=== PATIENT | female | born 1980 | race African-American/Black ===

== ENCOUNTER 2018-10-28 23:01 | Emergency (ER) | payer OTHER ==
[~2018-10-28] VITALS: Ht 154.9 cm; Wt 121.1 kg
--- NOTE | 2018-10-28 23:20 | PHYS DOC ---
Adult General Chief Complaint Chief Complaint: ANXIETY/PANIC ATTACK HPI HPI Patient is a 38-year-old female who presents with complaint of severe anxiety. Patient states that she was recently taken off of her Wellbutrin and transitioned to Zoloft. She states that over the last 2 days she has been having a severe panic attack. She states that she tried to call her doctor earlier this afternoon but never heard back from them. She was trying to wait until tomorrow morning but states that her symptoms got so severe that she needed to come to the emergency room. She denies any chest pain but is worried that maybe her blood pressure is going up because of how anxious she is. She denies any homicidal or suicidal ideations. Review of Systems Review of Systems Constitutional: Denies fever or chills [] Respiratory: Denies cough or shortness of breath [] Cardiovascular: No additional information not addressed in HPI [] Integument: Denies rash or skin lesions [] Neurologic: Denies headache, focal weakness or sensory changes [] Psychiatric: Positive anxiety[] Physical Exam Physical Exam Constitutional: Well developed, well nourished, no acute distress, non-toxic appearance. [] Cardiovascular:Heart rate regular rhythm, no murmur [] Lungs & Thorax: Bilateral breath sounds clear to auscultation [] Extremities: No tenderness, no cyanosis, no clubbing, ROM intact, no edema. [] Neurologic: Alert and oriented X 3, no focal deficits noted. [] Psychologic: Moderately anxious on exam. [] EKG EKG [] Radiology/Procedures Radiology/Procedures [] Course & Med Decision Making Course & Med Decision Making Pertinent Labs and Imaging studies reviewed. (See chart for details) [] Dragon Disclaimer Dragon Disclaimer This electronic medical record was generated, in whole or in part, using a voice recognition dictation system. Departure Departure: Impression: Primary Impression: Panic attack Disposition: 01 HOME, SELF-CARE Condition: STABLE Referrals: PCP,UNKNOWN (PCP) Patient Instructions: Anxiety and Panic Attacks ARNOLD RIZVI Jr. DO Oct 28, 2018 23:20
[2018-10-28] MEDS ORDERED: ALPRAZolam 0.25 MG TABLET PO ONE (23:30)
[2018-10-29 00:10] VITALS: BP 137/88
[2018-10-29] MEDS ORDERED: CLOR7.5T43 PO (18:20)
== END 2018-10-29 00:10 | disposition home or self-care (01) ==
LOC: ER 23:01
DX: F41.0 Panic disorder [episodic paroxysmal anxiety] (principal)
CPT/HCPCS: 99284

== ENCOUNTER 2018-10-29 17:42 | Emergency (ER) | payer OTHER ==
[~2018-10-29] VITALS: Ht 154.9 cm; Wt 121.1 kg
[2018-10-29 17:52] VITALS: BP 148/81
[2018-10-29] MEDS ORDERED: CLOR7.5T43 PO (18:20)
--- NOTE | 2018-10-29 18:20 | PHYS DOC ---
Past History Past Medical History: Anxiety, Asthma, Depression, Hypertension, Other Past Surgical History: Cholecystectomy, Tonsillectomy, Tubal ligation Alcohol Use: None Drug Use: None Adult General Chief Complaint Chief Complaint: MEDICATION [facility] HPI Patient is a 38-year-old female who presents with request for few day supply of anxiolytic. Patient was seen here last night and had been given a dose of alprazolam due to severe anxiety and inability to sleep. Patient was supposed to follow up with her primary care doctor today but states that she overslept and was not able to get in today. She denies any chest pain or shortness of breath. She denies any suicidal or homicidal ideations. Review of Systems Review of Systems Constitutional: Denies fever or chills [] Respiratory: Denies cough or shortness of breath [] Cardiovascular: No additional information not addressed in HPI [] Neurologic: Denies headache, focal weakness or sensory changes [] Allergies Allergies Allergies Coded Allergies Type Severity Reaction Last Updated Verified No Known Drug Allergies 10/29/18 No Physical Exam Physical Exam Constitutional: Well developed, well nourished, no acute distress, non-toxic appearance. [] Cardiovascular:Heart rate regular rhythm, no murmur [] Lungs & Thorax: Bilateral breath sounds clear to auscultation [] Neurologic: Alert and oriented X 3, no focal deficits noted. [] Current Patient Data Vital Signs Vital Signs Date Time Temp Pulse Resp B/P (MAP) Pulse Ox O2 Delivery O2 Flow Rate FiO2 10/29/18 17:52 99.1 95 18 97 Room Air EKG EKG [] Radiology/Procedures Radiology/Procedures [] Course & Med Decision Making Course & Med Decision Making Pertinent Labs and Imaging studies reviewed. (See chart for details) [] Dragon Disclaimer Dragon Disclaimer This electronic medical record was generated, in whole or in part, using a voice recognition dictation system. Departure Departure: Impression: Primary Impression: Panic disorder Disposition: 01 HOME, SELF-CARE Condition: STABLE Referrals: LUCA SOLIMAN MD (PCP) Patient Instructions: Anxiety and Panic Attacks Scripts Clorazepate Dipotassium (TRANXENE T-TAB) 7.5 Mg Tablet 7.5 MG PO QHS PRN for ANXIETY, #5 TAB Prov: ARNOLD RIZVI Jr. DO 10/29/18 ARNOLD RIZVI Jr. DO Oct 29, 2018 18:20
== END 2018-10-29 18:26 | disposition home or self-care (01) ==
LOC: ER 17:42
DX: F41.0 Panic disorder [episodic paroxysmal anxiety] (principal); J45.909 Unspecified asthma, uncomplicated; F32.9 Major depressive disorder, single episode, unspecified; I10 Essential (primary) hypertension
CPT/HCPCS: 99283

== ENCOUNTER 2018-11-16 01:51 | Emergency (ER) | payer OTHER ==
[~2018-11-16] VITALS: Ht 154.9 cm; Wt 121.1 kg
[~2018-11-16 01:51] MED LIST: CLOR7.5T43 PO
[2018-11-16 01:55] VITALS: BP 146/81
--- NOTE | 2018-11-16 02:14 | ED.ADGEN ---
Past History Past Medical History: Anxiety, Asthma, Depression, Hypertension, Other Past Surgical History: Cholecystectomy, Tonsillectomy, Tubal ligation Smoking: Cigarettes Alcohol Use: None Drug Use: None Adult General Chief Complaint Chief Complaint ".. My legs hurt so bad tonight.. I got arthritis.." [facility] HPI Patient is a 38 year old female who presents with above hx and complaints exacerbation of her chronic arthritis complaints particularly in bilateral knees. Patient has history of chronic pain, anxiety, depression, and arthritis. Patient denies any injury to her knees. Distal neurovascular intact. Patient is able to do straight leg lift. Knees do have some bilateral swelling. But no cording appreciated. No obvious laxity of ligaments. Distal neurovascular intact. Patient denies any history immunosuppression, severe ill contacts or trauma. Patient follows with Dr. Khan. Review of Systems Review of Systems Constitutional: Denies fever or chills [] Eyes: Denies change in visual acuity, redness, or eye pain [] HENT: Denies nasal congestion or sore throat [] Respiratory: Denies cough or shortness of breath [] Cardiovascular: No additional information not addressed in HPI [] GI: Denies abdominal pain, nausea, vomiting, bloody stools or diarrhea [] : Denies dysuria or hematuria [] Musculoskeletal: Plaints of exacerbation of arthritis in all her joints but pa rticularly in knees tonight. Integument: Denies rash or skin lesions [] Neurologic: Denies headache, focal weakness or sensory changes [] Endocrine: Denies polyuria or polydipsia [] All other systems were reviewed and found to be within normal limits, except as documented in this note. Family History Family History Noncontributory Current Medications Current Medications Current Medications Medications (Trade) Dose Ordered Sig/[facility] Start Time Stop Time Status Last Admin Dose Admin Ketorolac Tromethamine (Toradol Im) 60 mg 1X ONCE 11/16/18 03:15 11/16/18 03:28 DC 11/16/18 03:18 60 MG Methylprednisolone Acetate (DEPO-Medrol IM) 40 mg 1X ONCE 11/16/18 03:15 11/16/18 03:28 DC 11/16/18 03:19 40 MG Allergies Allergies Allergies Coded Allergies Type Severity Reaction Last Updated Verified No Known Drug Allergies 10/29/18 No Physical Exam Physical Exam Constitutional: Moderately acute distress, non-toxic appearance. [] HENT: Normocephalic, atraumatic, bilateral external ears normal, oropharynx moist, no oral exudates, nose normal. [] Eyes: PERRLA, EOMI, conjunctiva normal, no discharge. [] Neck: Normal range of motion, no tenderness, supple, no stridor. [] Cardiovascular:Heart rate regular rhythm, no murmur [] Lungs & Thorax: Bilateral breath sounds "apexes scattered wheezes on auscultation [] Abdomen: Bowel sounds normal, soft, no tenderness, no masses, no pulsatile masses. []Obese .Old surgery scars. Skin: Warm, dry, no erythema, no rash. [] Back: No tenderness, no CVA tenderness. [] Extremities: Bilateral knee tenderness, no cyanosis, no clubbing, ROM intact, no edema. [] Old surgery scars on right knee. No cording appreciated. Neurologic: Alert and oriented X 3, normal motor function, normal sensory function, no focal deficits noted. [] Psychologic: Affect anxious, judgement normal, mood normal. [] Current Patient Data Vital Signs Vital Signs Date Time Temp Pulse Resp B/P (MAP) Pulse Ox O2 Delivery O2 Flow Rate FiO2 11/16/18 01:55 98.4 109 18 100 Room Air Lab Results Laboratory Tests Test 11/16/18 02:20 Urine Collection Type Unknown Urine Color Yellow Urine Clarity Clear Urine pH 8.5 Urine Specific [place] 1.015 Urine Protein Neg (NEG-TRACE) Urine Glucose (UA) Neg mg/dL (NEG) Urine Ketones (Stick) Neg mg/dL (NEG) Urine Blood Neg (NEG) Urine Nitrite Neg (NEG) Urine Bilirubin Neg (NEG) Urine Urobilinogen Dipstick 0.2 mg/dL (0.2 mg/dL) Urine Leukocyte Esterase Neg (NEG) Urine RBC 0 /HPF (0-2) Urine WBC Occ /HPF (0-4) Urine Squamous Epithelial Cells Occ /LPF Urine Bacteria 0 /HPF (0-FEW) Urine Test Negative (NEG) Urine Opiates Screen Neg (NEG) Urine Methadone Screen Neg (NEG) Urine Barbiturates Neg (NEG) Urine Phencyclidine Screen Pos (NEG) Urine Amphetamine/Methamphetamine Neg (NEG) Urine Benzodiazepines Screen Neg (NEG) Urine Cocaine Screen Pos (NEG) Urine Cannabinoids Screen Neg (NEG) Urine Ethyl Alcohol Neg (NEG) EKG EKG [] Radiology/Procedures Radiology/Procedures My interpretation of bilateral knee films show no large fracture dislocation. Has mild degenerative joint changes.[] Course & Med Decision Making Course & Med Decision Making Pertinent Labs and Imaging studies reviewed. (See chart for details) Patient to wear straps. Patient take [id number] Tylenol and ibuprofen. Patient follow-up primary care. Encouraged patient to stop smoking and illicit drug use. Patient encouraged to keep follow-up with her counselor and primary. Pt. follow-up primary care. [] Final Impression Final Impression 1. Arthritis Complaints 2. Chronic Pain 3. Depression 4. Tobacco, PCP, and cocaine use 5. Appears to have Narcotic seeking behaviors [] Dragon Disclaimer Dragon Disclaimer This electronic medical record was generated, in whole or in part, using a voice recognition dictation system. Discharge Summary Visit Information Final Diagnosis Problems Medical Problems: (1) Arthritis Status: Acute Brief Hospital Course Allergies Allergies Coded Allergies Type Severity Reaction Last Updated Verified No Known Drug Allergies 10/29/18 No Vital Signs Vital Signs Date Time Temp Pulse Resp B/P (MAP) Pulse Ox O2 Delivery O2 Flow Rate FiO2 11/16/18 01:55 98.4 109 18 100 Room Air Lab Results Laboratory Tests Test 11/16/18 02:20 Urine Collection Type Unknown Urine Color Yellow Urine Clarity Clear Urine pH 8.5 Urine Specific [place] 1.015 Urine Protein Neg (NEG-TRACE) Urine Glucose (UA) Neg mg/dL (NEG) Urine Ketones (Stick) Neg mg/dL (NEG) Urine Blood Neg (NEG) Urine Nitrite Neg (NEG) Urine Bilirubin Neg (NEG) Urine Urobilinogen Dipstick 0.2 mg/dL (0.2 mg/dL) Urine Leukocyte Esterase Neg (NEG) Urine RBC 0 /HPF (0-2) Urine WBC Occ /HPF (0-4) Urine Squamous Epithelial Cells Occ /LPF Urine Bacteria 0 /HPF (0-FEW) Urine Test Negative (NEG) Urine Opiates Screen Neg (NEG) Urine Methadone Screen Neg (NEG) Urine Barbiturates Neg (NEG) Urine Phencyclidine Screen Pos (NEG) Urine Amphetamine/Methamphetamine Neg (NEG) Urine Benzodiazepines Screen Neg (NEG) Urine Cocaine Screen Pos (NEG) Urine Cannabinoids Screen Neg (NEG) Urine Ethyl Alcohol Neg (NEG) Brief Hospital Course Ms. Gleason is a 38 old female who presented with arthritis exacerbation. Requesting narcotic pain meds. Discharge Information Condition at Discharge: Stable Disposition/Orders: D/C to Home Dischare Medications Current Medications Ketorolac Tromethamine (Toradol Im) 60 mg 1X ONCE IM Last administered on 11/16/18at 03:18; Admin Dose 60 MG; Start 11/16/18 at 03:15; Stop 11/16/18 at 03:28; Status DC Methylprednisolone Acetate (DEPO-Medrol IM) 40 mg 1X ONCE IM Last administered on 11/16/18at 03:19; Admin Dose 40 MG; Start 11/16/18 at 03:15; Stop 11/16/18 at 03:28; Status DC Active Scripts Active Tranxene T-Tab (Clorazepate Dipotassium) 7.5 Mg Tablet 7.5 Mg PO QHS PRN Dragon Disclaimer This chart was dictated in whole or in part using Voice Recognition software in a busy, high-work load, and often noisy Emergency Department environment. It may contain unintended and wholly unrecognized errors or omissions. PARESH REYES MD November 16, 2018 02:14
[2018-11-16 02:57] LABS: AMPHETAMINE/METHAMPHETAMINE NEG (NEG); BARBITURATES NEG (NEG); BENZODIAZEPINES NEG (NEG); CANNABINOIDS NEG (NEG); COCAINE POS (NEG); METHADONE NEG (NEG); OPIATES NEG (NEG); PHENCYCLIDINE POS (NEG)
[2018-11-16 03:01] LABS: BILIRUBIN,URINE NEG (NEG); CLARITY,URINE CLEAR; COLOR,URINE YELLOW; GLUCOSE,URINE NEG (NEG)
[2018-11-16 03:02] LABS: BACTERIA,URINE 0 /HPF (0-FEW); NITRITE,URINE NEG (NEG); RBC,URINE 0 /HPF (0-2); SQUAMOUS EPITHELIAL CELL,UR OCC /LPF; U PREG PATIENT NEGATIVE (NEG); UROBILINOGEN,URINE 0.2 mg/dL (0.2 mg/dL); WBC,URINE OCC /HPF (0-4)
[2018-11-16] MEDS ORDERED: methylPREDNISolone ACETATE 40 MG/ML VIAL. IM ONE (03:15)
[2018-11-16] MEDS ORDERED: KETOROLAC 60 MG/2 ML VIAL. IM ONE (03:15)
--- NOTE | 2018-11-16 08:33 | RAD ---
EXAM: AP, oblique, lateral and tangential patellar views of the knees DATE: 11/16/2018 2:23 AM INDICATION: Bilateral knee pain COMPARISON: No Prior FINDINGS: There is no evidence for acute fracture or dislocation. Tricompartmental osteoarthritis with joint space narrowing. Patellar enthesopathy. Borderline lateral patellar tracking bilaterally. Trace knee joint effusions bilaterally. IMPRESSION: 1. Bilateral knee joint osteoarthritis with mild joint space narrowing medial compartment bilaterally. 2. No evidence for acute fracture or dislocation. Electronically signed by: Nav De MD (11/16/2018 8:30 AM) [id number]
== END 2018-11-16 03:40 | disposition home or self-care (01) ==
LOC: ER 01:51
DX: M13.862 Other specified arthritis, left knee (principal); M13.861 Other specified arthritis, right knee; G89.29 Other chronic pain; F32.9 Major depressive disorder, single episode, unspecified; F41.9 Anxiety disorder, unspecified; J45.909 Unspecified asthma, uncomplicated; I10 Essential (primary) hypertension; F17.210 Nicotine dependence, cigarettes, uncomplicated; F14.90 Cocaine use, unspecified, uncomplicated; F15.90 Other stimulant use, unspecified, uncomplicated
CPT/HCPCS: 36415; 73564; 80307; 81001; 81025; 96372; 99285; J1030; J1885

== ENCOUNTER 2018-12-21 13:50 | Emergency (ER) | payer MEDICAID, OTHER ==
[~2018-12-21] VITALS: Ht 157.5 cm; Wt 123.1 kg
--- NOTE | 2018-12-21 14:37 | PHYS DOC ---
Past History Past Medical History: Anxiety, Asthma, Depression, Hypertension, Other Past Surgical History: Cholecystectomy, Tonsillectomy, Tubal ligation Smoking: Cigarettes Alcohol Use: None Drug Use: None Adult General Chief Complaint Chief Complaint: PAIN ON URINATION HPI HPI Patient is a 38-year-old female presents with dysuria for the past 2-3 days. Increased urgency, increased frequency, no back pain or flank pain. No fever. Nothing makes it better or worse. This is like her previous urinary tract infections. She also complains of a skin boil under her right arm for the past 2-3 days. Increased pain with touch. No relief with home, [id number] pain medicines. No fever. No nausea or vomiting. Pain is moderate to severe.[] Review of Systems Review of Systems Constitutional: Denies fever or chills [] Eyes: Denies change in visual acuity, redness, or eye pain [] HENT: Denies nasal congestion or sore throat [] Respiratory: Denies cough or shortness of breath [] Cardiovascular: No chest pain or palpitations[] GI: Denies abdominal pain, nausea, vomiting, bloody stools or diarrhea [] : Denies hematuria, see history of present illness [] Musculoskeletal: Denies back pain or joint pain [] Integument: See history of present illness [] Neurologic: Denies headache, focal weakness or sensory changes [] Endocrine: Denies polyuria or polydipsia [] All other systems were reviewed and found to be within normal limits, except as documented in this note. Allergies Allergies Allergies Coded Allergies Type Severity Reaction Last Updated Verified No Known Drug Allergies 12/21/18 No Physical Exam Physical Exam Constitutional: Well developed, well nourished, no acute distress, non-toxic appearance. [] HENT: Normocephalic, atraumatic, bilateral external ears normal, oropharynx moist, no oral exudates, nose normal. [] Eyes: PERRLA, EOMI, conjunctiva normal, no discharge. [] Neck: Normal range of motion, no tenderness, supple, no stridor. [] Cardiovascular:Heart rate regular rhythm, no murmur [] Lungs & Thorax: Bilateral breath sounds clear to auscultation [] Abdomen: Bowel sounds normal, soft, no tenderness, no masses, no pulsatile masses. [] Skin: Warm, dry, 1 cm draining nodule right axilla. Minimal purulent drainage. Tenderness to palpation is present. No axillary lymphadenopathy. [] Back: No tenderness, no CVA tenderness. [] Extremities: No tenderness, no cyanosis, no clubbing, ROM intact, no edema. [] Neurologic: Alert and oriented X 3, normal motor function, normal sensory function, no focal deficits noted. [] Psychologic: Affect normal, judgement normal, mood normal. [] EKG EKG [] Radiology/Procedures Radiology/Procedures [] Course & Med Decision Making Course & Med Decision Making Pertinent Labs and Imaging studies reviewed. (See chart for details) Medical decision making: No evidence of a urinary tract infection. Will cover for skin infection with appropriate antibiotics. We will address her pain with nonsteroidal anti-inflammatory medication. There is no evidence of sepsis. No evidence of pyelonephritis. No evidence of .[] Dragon Disclaimer Dragon Disclaimer This electronic medical record was generated, in whole or in part, using a voice recognition dictation system. Departure Departure: Impression: Primary Impression: Cutaneous abscess of axilla Additional Impression: Dysuria Disposition: 01 HOME, SELF-CARE Condition: IMPROVED Referrals: LUCA SOLIMAN MD (PCP) Follow-up in 2 days Patient Instructions: Abscess, Care After, Dysuria Additional Instructions: Follow-up with your regular doctor in 2 days. Drink plenty of fluids. Take the medication as prescribed. Stop smoking! Return to the ER if worsening pain, fever of more than 101, or any other concerns. Scripts Meloxicam (MELOXICAM) 7.5 Mg Tablet 7.5 MG PO DAILY for PAIN, #20 TAB Prov: KIMANI MELISSA DO 12/21/18 Sulfamethoxazole/Trimethoprim (BACTRIM DS TABLET) 1 Each Tablet 1 TAB PO BID for infection, #20 TAB Prov: KIMANI MELISSA DO 12/21/18 Problem Qualifiers Primary Impression: Cutaneous abscess of axilla Laterality: right Qualified Codes: L02.411 - Cutaneous abscess of right axilla KIMANI MELISSA DO Dec 21, 2018 14:37
[2018-12-21 14:50] LABS: BILIRUBIN,URINE NEG (NEG); CLARITY,URINE CLEAR; COLOR,URINE YELLOW; GLUCOSE,URINE NEG (NEG)
[2018-12-21 14:51] LABS: BACTERIA,URINE 0 /HPF (0-FEW); NITRITE,URINE NEG (NEG); RBC,URINE 0 /HPF (0-2); SQUAMOUS EPITHELIAL CELL,UR OCC /LPF; UROBILINOGEN,URINE 0.2 mg/dL (0.2 mg/dL); WBC,URINE 0 /HPF (0-4)
[2018-12-21] MEDS ORDERED: SULF1TAB24 PO (15:00)
[2018-12-21] MEDS ORDERED: MELO7.5T29 PO (15:00)
[2018-12-21 15:13] VITALS: BP 153/100
== END 2018-12-21 15:20 | disposition home or self-care (01) ==
LOC: ER 13:50
DX: L02.411 Cutaneous abscess of right axilla (principal); R30.0 Dysuria; F41.9 Anxiety disorder, unspecified; J44.9 Chronic obstructive pulmonary disease, unspecified; I10 Essential (primary) hypertension; F17.210 Nicotine dependence, cigarettes, uncomplicated
CPT/HCPCS: 81001; 81025; 99283